=== PATIENT | female | born 1995 | race Caucasian/White ===

== ENCOUNTER 2024-05-08 16:22 | Emergency (ER) | payer OTHER, SELFPAY ==
[2024-05-08 16:25] VITALS: BP 123/75; PULSE 110; RESP 18; TEMP 37.3; O2SAT 99; BMI 24.4
--- NOTE | 2024-05-08 16:33 | ED.PREGNANCY ---
HPI - General Time Seen by Provider: 16:35 Date Seen: 05/08/24 Chief complaint: Vaginal Bleeding Stated complaint: 9.5 weeks , bleeding Time Seen by Provider: 05/08/24 16:28 Source: patient and RN notes reviewed Mode of arrival: ambulatory Limitations: no limitations History of Present Illness HPI Narrative: This 28-year-old female is coming in with bleeding in her 1st trimester. She started having some bleeding earlier today, had a period for about an hour to an hour and half were was heavier, passed some clots. It has settled down. Maybe some light cramping but no significant cramping, no abdominal pain. No fevers or chills. She has her 1st OB appointment scheduled this Monday. She states her last menstrual cycle started on March 02. She had regular menstrual cycles prior to this. This would make her 9 weeks 4 days . Estimated it delivery date December 08. She had some early breast tenderness this but is not ongoing, no morning sickness. Related Data Home Medications ?Medication ?Instructions ?Recorded ?Confirmed cetirizine 10 mg capsule (All Day 10 mg PO DAILY PRN 05/08/24 05/08/24 Allergy (cetirizine)) Allergies Allergy/AdvReac Type Severity Reaction Status Date / Time codeine Allergy Unknown Verified 05/08/24 16:32 Review of Systems Status of ROS: Reports: 6 or more systems reviewed and unremarkable except as noted in History and below PFSH PFS Surgical History [place] teeth extracted ?K08.409 - Partial loss of teeth, unspecified cause, unspecified class (ICD-10) History of tonsillectomy and adenoidectomy ?Z90.89 - Acquired absence of other organs (ICD-10) Family History Mother Breast cancer Diabetes Father Leukemia Grandfather Diabetes Atrial fibrillation FH: prostate cancer Social History Smoking Status: Never smoker How often do you have a drink containing alcohol: never AUDIT-C Alcohol total score: 0 Non-prescribed substance use: denies use service: No Exam Const: Vital Signs, click to edit/add: Vital Signs - 24 hr 05/08/24 16:25 05/08/24 16:41 Temperature 99.2 F Pulse Rate [Right Pulse Oximeter] 110 H Respiratory Rate 18 Blood Pressure [Ri ght Upper Arm] 123/75 Pulse Oximetry 99 98 Oxygen Delivery Me thod Room Air This 28-year-old female is alert, interactive, no apparent distress. She is ambulatory into the ED of her own accord. Sclera clear, face atraumatic, speaking in complete sentences. Lungs are clear, good air entry, no tachypnea accessory muscle use. CV regular rate and rhythm, no murmur. Abdomen is soft, nontender, no rebound or guarding. Pelvic exam deferred at this point. Documenting provider has reviewed patient's vital signs: yes Course Course ED Course: Will obtain ultrasound, CBC, blood type and quantitative hCG in assessment of first-trimester bleeding. This could be threatened miscarriage, miscarriage or even possibly subchorionic hemorrhage. Will await ultrasound report. She states the bleeding has really almost stopped at this point. She is hemodynamically stable. Reevaluation(s) Time of Reevaluation #1: 18:45 Reevaluation #1: Have given patient the unfortunate ultrasound news, provided her a copy of the report. CBC is stable. HCG level is at 4000. We are waiting on her blood type. She understands if her Rh factor is negative, will get RhoGAM. Did review my conversation with the manager online with her. Time of Reevaluation #2: 19:49 Reevaluation #2: Patient is AB-positive. Will discharge to home. Consultations Consultation #1: Have spoken with OB on-call Dr. Cortes. She agrees that this is an incomplete miscarriage. Patient does not bleeding now and thus will not require D&C. She wants patient to call tomorrow to request earlier consultation. She recommends that I give her a bleeding signs and symptoms for return. If she is Rh negative will need RhoGAM. Will need to wait for the blood type. Will go talk to patient about the ultrasound findings and the fact that we need to wait for her blood type. Time: 18:38 Vital Signs Vital signs: Initial Vital Signs Temperature 99.2 F 05/08/24 16:25 Temperature Source Temporal Artery Scan 05/08/24 16:25 Pulse Rate 110 H 05/08/24 16:25 Pulse Rhythm Regular 05/08/24 16:25 Pulse Strength 3+ Normal 05/08/24 16:25 Respiratory Rate 18 05/08/24 16:25 Blood Pressure 123/75 05/08/24 16:25 Blood Pressure Mean 91 05/08/24 16:25 Blood Pressure Position Sitting 05/08/24 16:25 Pulse Oximetry 99 05/08/24 16:25 Oxygen Delivery Method Room Air 05/08/24 16:25 Vital Signs Temperature 99.2 F 05/08/24 16:25 Pulse Rate 110 H 05/08/24 16:25 Respiratory Rate 18 05/08/24 16:25 Blood Pressure 123/75 05/08/24 16:25 Pulse Oximetry 99 05/08/24 16:25 Oxygen Delivery Method Room Air 05/08/24 16:25 Temperature 99.2 F 05/08/24 16:25 Pulse Rate 110 H 05/08/24 16:25 Respiratory Rate 18 05/08/24 16:25 Blood Pressure 123/75 05/08/24 16:25 Pulse Oximetry 98 05/08/24 16:41 Oxygen Delivery Method Room Air 05/08/24 16:25 MDM - OB/Uterine Contractions Lab Data Attestation: I reviewed the patient's lab results. Labs: Lab Results 05/08/24 Range/Units 16:46 WBC 9.07 (4.50-11.00) K/uL RBC 4.85 (4.00-5.20) m/uL Hgb 14.1 (12.0-16.0) gm/dL Hct 43.7 (33.0-51.0) % MCV 90 (80-100) fL MCH 29 (26-34) pg MCHC 32 (32-36) gm/dL RDW Coeff of Brianna 12.3 (11.5-15.5) % Plt Count 347 (140-440) K/uL Neut % (Auto) 71.8 (42.0-72.0) % Lymph % (Auto) 19.1 L (20-44) % [place] % (Auto) 6.9 (0.0-11.0) % Eos % (Auto) 1.3 (0.0-7.0) % Baso % (Auto) 0.3 (0.0-3.0) % Neut # (Auto) 6.51 (1.7-7.0) K/uL Lymph # (Auto) 1.70 (0.90-2.90) K/uL [place] # (Auto) 0.60 (0.00-0.90) K/UL Eos # (Auto) 0.12 (0.00-0.50) K/uL Baso # (Auto) 0.03 (0.00-0.30) K/uL Abs Immat Gran (auto) 0.05 (0.00-0.30) K/uL Imm/Tot Granulo (auto) 0.6 % HCG, Quant 4119.50 mIU/mL Blood Type AB Positive Imaging Data US OB : Attestation: I have reviewed the pertinent imaging results. Radiologist's impression: Patient: JACOB BREEN Facility:?[facility] Patient ID:?[id number] Site Patient ID:?[id number]. Site :?[id number] Study:?US-OB Pelvis 1st tri transvaginal-05/08/2024 5:24:38 PM Ordering Physician:?Sujatha Gusman Final Report: Indication: bleeding in first trimester LMP: 03/02/2024. Technique: Real-time sonographic images of the pelvis were obtained transvaginally using grayscale, color, and Doppler imaging. Comparison: None. Findings: Uterus: Subchorionic hemorrhage measuring 1.5 x 0.4 x 0.5 centimeter. Gestational sac: Mean sac diameter measures 1.6 centimeter, compatible with an average ultrasound age of 6 weeks 3 days. Possible debris is seen within. pole: Not visualized. Yolk sac: Absent. Right ovary: Size: 4.3 x 2.3 x 3.1 centimeter. Appearance: Normal morphology. Corpus luteum measuring 1.7 x 1.7 x 1.7 centimeter and 2.0 x 1.9 x 1.9 centimeter. Left ovary: Size: 2.6 x 1.5 x 1.7 centimeter. Appearance: Normal morphology. No masses. Bladder: Visualized bladder is normal. Other: No free fluid. Impression: 1. The mean sac diameter is 16-24 mm, with no embryo visualized. Findings are suspicious for early failure. Recommend follow-up ultrasound and beta HCG. 2. Subchorionic hemorrhage measuring 1.5 x 0.4 x 0.5 centimeter. Dictated by David Eller MD @ 05/08/2024 5:54:04 PM (Electronic Signature) Discharge Plan Discharge Clinical Impression: Incomplete miscarriage Patient Disposition: Home, Self-Care Condition: Stable Instructions: Miscarriage (ED) Additional Instructions: [facility], see if they can work you in earlier than Monday. If your bleeding is increasing, bleeding through a maxi pad an hour over 2 hours, becoming symptomatic from blood loss as we discussed, do need to be re-evaluated. Type is AB-positive. Activity Level: Activity as Tolerated Prescriptions: No Action All Day Allergy (cetirizine) 10 mg capsule 10 mg PO DAILY PRN Follow Up/Referrals: Provider,Not a Local [Primary Care Provider] - Stand Alone Forms: [employer] Info Instructions
[2024-05-08 16:41] VITALS: O2SAT 98
[2024-05-08 16:51] LABS: Basophils Absolute Auto 0.03 K/uL (0.00-0.30); Basophils Percent Auto 0.3 % (0.0-3.0); Eosinophils Absolute Auto 0.12 K/uL (0.00-0.50); Eosinophils Percent Auto 1.3 % (0.0-7.0); Hematocrit 43.7 % (33.0-51.0); Hemoglobin* 14.1 gm/dL (12.0-16.0); Immature Granulocytes Abs Auto 0.05 K/uL (0.00-0.30); Immature Granulocytes Pct Auto 0.6 %; Lymphocytes Percent Auto 19.1 % (20-44); Mean Corpuscular HGB Conc 32 gm/dL (32-36); Mean Corpuscular Hemoglobin 29 pg (26-34); Mean Corpuscular Volume 90 fL (80-100); Monocytes Percent Auto 6.9 % (0.0-11.0); Neutrophils Absolute Auto 6.51 K/uL (1.7-7.0); Neutrophils Percent Auto 71.8 % (42.0-72.0); Platelet Count* 347 K/uL (140-440); RDW Coefficient of Variation % 12.3 % (11.5-15.5); Red Blood Count 4.85 m/uL (4.00-5.20); White Blood Count* 9.07 K/uL (4.50-11.00)
[2024-05-08 17:13] LABS: Slide Review Reflex No
== END 2024-05-08 19:55 | disposition home or self-care (01) ==
PROVIDERS: Emergency Provider Family Medicine
DX: O03.4 Incomplete spontaneous abortion without complication (principal)
CPT/HCPCS: 36415; 76817; 84702; 85025; 86900; 86901; 94761; 99283; 99284

== ENCOUNTER 2024-05-09 11:37 | Outpatient (CLI) | payer OTHER, SELFPAY | END 2024-05-09 11:38 | disposition home or self-care (01) | PROVIDERS: Visit Provider Obstetrics & Gynecology | DX: O20.0 Threatened abortion (principal) | CPT/HCPCS: 84702 ==

== ENCOUNTER 2024-05-09 19:48 | Emergency (ER) | payer OTHER, SELFPAY ==
[2024-05-09 19:56] VITALS: BP 131/115; PULSE 115; RESP 16; TEMP 36.4; O2SAT 97
--- NOTE | 2024-05-09 19:57 | ED.PREGNANCY ---
HPI - General Time Seen by Provider: 19:57 Date Seen: 05/09/24 Chief complaint: Vaginal Bleeding Stated complaint: miscarriage - Bleeding a lot and alot of clotting Time Seen by Provider: 05/09/24 19:51 Source: patient, family, RN notes reviewed and old records reviewed Mode of arrival: ambulatory Limitations: no limitations History of Present Illness HPI Narrative: This 28-year-old female is coming in with concern of excessive bleeding starting around 530 tonight with known incomplete miscarriage. I did see her last night in the ER, had ultrasound, had lab work. She did go to clinic today, I did review the chart, hCG had dropped further. She notes that she has been soaking in overnight pad, changing it about every 30-45 minutes but the pad is not completely saturated. She does feels like she is constantly bleeding and passing clots. She has had no fevers. She has no chest pain, no shortness of breath, no difficulty breathing. She is feeling more cramping. With the cramping is there it is painful but in between, no significant abdominal pain. Related Data Home Medications ?Medication ?Instructions ?Recorded ?Confirmed cetirizine 10 mg capsule (All Day 10 mg PO DAILY PRN 05/08/24 05/09/24 Allergy (cetirizine)) docosahexaenoic acid 200 mg mg PO 05/09/24 05/09/24 capsule ( DHA) Allergies Allergy/AdvReac Type Severity Reaction Status Date / Time codeine Allergy Unknown Verified 05/09/24 10:29 Review of Systems Narrative: As per HPI. PFSH PFSH Surgical History [place] teeth extracted ?K08.409 - Partial loss of teeth, unspecified cause, unspecified class (ICD-10) History of tonsillectomy and adenoidectomy ?Z90.89 - Acquired absence of other organs (ICD-10) Family History Mother Breast cancer Diabetes Father Leukemia Grandfather Diabetes Atrial fibrillation FH: prostate cancer Social History Smoking Status: Never smoker How often do you have a drink containing alcohol: never AUDIT-C Alcohol total score: 0 Non-prescribed substance use: denies use service: No Exam Const: Vital Signs, click to edit/add: Vital Signs - 24 hr 05/09/24 19:56 Temperature 97.6 F Pulse Rate [Pulse Oximeter] 115 H Respiratory Rate 16 Blood Pressure [Ri ght Upper Arm] 131/115 H Pulse Oximetry 97 Oxygen Delivery Me thod Room Air This 28-year-old female is alert, interactive, no apparent distress. She is ambulating into the ED. She does seem mildly anxious, sclera clear, speech normal. Lungs are clear, good air entry, no wheezing crackles. CV slightly fast but regular, no murmur, normal S1-S2, no S3-S4. She has mild suprapubic tenderness but no rebound or guarding. Do not appreciate organomegaly. Perineum with some smeared old blood but no active bleeding noted. There is nothing on the pad below her at this time. Will continue to monitor. Documenting provider has reviewed patient's vital signs: yes Course Course ED Course: Will have nursing staff place an IV, get blood work. Will monitor for bleeding. Will most likely be talking to OB on-call at some point. We do know that she is AB-positive for her blood type. Will do a type and screen in case of significant bleeding requiring intervention. Reevaluation(s) Time of Reevaluation #1: 21:17 Reevaluation #1: No bleeding on the chux at this time. Awaiting hemoglobin. Nursing staff did not get IV in place, lab did a draw, we did have a critical patient come in that usurped some of these interventions. Patient is hemodynamically stable. Time of Reevaluation #2: 21:50 Reevaluation #2: Patient just has a small smearing and small clot along the labia that strings out when her legs are spread. There is nothing on the pad below her. This is not significant bleeding at this time. Have discussed with her my conversation with Dr. Quarles. She does not want to do the misoprostol, still is considering expectant management. She does know that her bleeding is not life-threatening or excessive to the point of requiring emergent D and C at this time. She will return if bleeding is escalating or worsening, becoming symptomatic. Otherwise, recommend contacting the [facility] to discuss scheduling D and C as recommended by Dr. Quarles. Consultations Consultation #1: Have spoken with Dr. Quarles, she did see this patient earlier. She did dependency counselor her on therapeutic measures with misoprostol all as well as D&C. Patient does not need emergent D and C tonight at this time given that she is in bleeding, hemoglobin has not significantly diminished. She would recommend misoprostol, she has counseled the patient on this, would be 800 mcg vaginally which I am certainly comfortable placing. I will talk to the patient in a while, continue to monitor for bleeding at this point Time: 21:20 Vital Signs Vital signs: Initial Vital Signs Temperature 97.6 F 05/09/24 19:56 Temperature Source Temporal Artery Scan 05/09/24 19:56 Pulse Rate 115 H 05/09/24 19:56 Respiratory Rate 16 05/09/24 19:56 Blood Pressure 131/115 H 05/09/24 19:56 Blood Pressure Mean 120 H 05/09/24 19:56 Blood Pressure Position Sitting 05/09/24 19:56 Pulse Oximetry 97 05/09/24 19:56 Oxygen Delivery Method Room Air 05/09/24 19:56 Vital Signs Temperature 97.6 F 05/09/24 19:56 Pulse Rate 115 H 05/09/24 19:56 Respiratory Rate 16 05/09/24 19:56 Blood Pressure 131/115 H 05/09/24 19:56 Pulse Oximetry 97 05/09/24 19:56 Oxygen Delivery Method Room Air 05/09/24 19:56 Temperature 97.6 F 05/09/24 19:56 Pulse Rate 115 H 05/09/24 19:56 Respiratory Rate 16 05/09/24 19:56 Blood Pressure 131/115 H 05/09/24 19:56 Pulse Oximetry 97 05/09/24 19:56 Oxygen Delivery Method Room Air 05/09/24 19:56 MDM - OB/Uterine Contractions Lab Data Labs: Lab Results 05/09/24 Range/Units 20:40 WBC 14.19 H (4.50-11.00) K/uL RBC 4.39 (4.00-5.20) m/uL Hgb 12.9 (12.0-16.0) gm/dL Hct 39.6 (33.0-51.0) % MCV 90 (80-100) fL MCH 29 (26-34) pg MCHC 33 (32-36) gm/dL RDW Coeff of Brianna 12.4 (11.5-15.5) % Plt Count 319 (140-440) K/uL Neut % (Auto) 81.5 H (42.0-72.0) % Lymph % (Auto) 11.3 L (20-44) % [place] % (Auto) 6.2 (0.0-11.0) % Eos % (Auto) 0.6 (0.0-7.0) % Baso % (Auto) 0.3 (0.0-3.0) % Neut # (Auto) 11.60 H (1.7-7.0) K/uL Lymph # (Auto) 1.60 (0.90-2.90) K/uL [place] # (Auto) 0.90 (0.00-0.90) K/UL Eos # (Auto) 0.10 (0.00-0.50) K/uL Baso # (Auto) 0.00 (0.00-0.30) K/uL Abs Immat Gran (auto) 0.00 (0.00-0.30) K/uL Imm/Tot Granulo (auto) 0.1 % Discharge Plan Discharge Clinical Impression: Incomplete miscarriage Patient Disposition: Home, Self-Care Condition: Stable Instructions: Miscarriage (ED) Additional Instructions: Continue to watch for heavier excessive bleeding as previously reviewed; also need to watch for symptomatic blood loss, if bleeding too much may become short of breath, difficulty breathing, feel heart rate escalating, feel lightheaded or dizzy. Dr. Quarles does recommend that you contact the clinic tomorrow and consider getting scheduled for a D&C. Activity Level: Activity as Tolerated Prescriptions: No Action DHA 200 mg capsule PO All Day Allergy (cetirizine) 10 mg capsule 10 mg PO DAILY PRN Follow Up/Referrals: Provider,Not a Local [Primary Care Provider] - Stand Alone Forms: [employer] Info Instructions
[2024-05-09 20:47] LABS: Basophils Percent Auto 0.3 % (0.0-3.0); Eosinophils Percent Auto 0.6 % (0.0-7.0); Hematocrit 39.6 % (33.0-51.0); Hemoglobin* 12.9 gm/dL (12.0-16.0); Immature Granulocytes Pct Auto 0.1 %; Lymphocytes Percent Auto 11.3 % (20-44); Mean Corpuscular HGB Conc 33 gm/dL (32-36); Mean Corpuscular Hemoglobin 29 pg (26-34); Mean Corpuscular Volume 90 fL (80-100); Monocytes Percent Auto 6.2 % (0.0-11.0); Neutrophils Percent Auto 81.5 % (42.0-72.0); Platelet Count* 319 K/uL (140-440); RDW Coefficient of Variation % 12.4 % (11.5-15.5); Red Blood Count 4.39 m/uL (4.00-5.20); White Blood Count* 14.19 K/uL (4.50-11.00)
[2024-05-09 21:16] LABS: Slide Review Reflex No
== END 2024-05-09 22:16 | disposition home or self-care (01) ==
PROVIDERS: Emergency Provider Family Medicine
DX: O03.4 Incomplete spontaneous abortion without complication (principal)
CPT/HCPCS: 36415; 85025; 86850; 86900; 86901; 99283

== ENCOUNTER 2024-05-27 13:36 | Outpatient (CLI) | payer OTHER, SELFPAY | END 2024-05-27 13:37 | disposition home or self-care (01) | LOC: US 13:36 | PROVIDERS: Visit Provider Obstetrics & Gynecology | DX: O03.4 Incomplete spontaneous abortion without complication (principal) | CPT/HCPCS: 76830; 76856; 84702 ==

== ENCOUNTER 2024-05-27 15:43 | Outpatient (CLI) | payer OTHER, SELFPAY | END 2024-05-27 15:44 | disposition home or self-care (01) | LOC: NFLDREF 15:43 | PROVIDERS: Visit Provider Obstetrics & Gynecology | DX: O03.9 Complete or unspecified spontaneous abortion without complication (principal) | CPT/HCPCS: 84702 ==

== ENCOUNTER 2024-06-03 08:12 | Outpatient (CLI) | payer OTHER, SELFPAY | END 2024-06-03 08:13 | disposition home or self-care (01) | LOC: NFLDREF 06-04 07:53 | PROVIDERS: Visit Provider Obstetrics & Gynecology | DX: O03.9 Complete or unspecified spontaneous abortion without complication (principal) | CPT/HCPCS: 84702 ==

== ENCOUNTER 2025-01-14 07:58 | Outpatient (CLI) | payer OTHER, SELFPAY ==
--- NOTE | 2025-01-14 08:15 | CRLHL7_ITS ---
For Patients: As a result of the Cures Act, medical imaging exams and procedure reports are released immediately into your electronic medical record. You may view this report before your referring provider. If you have questions, please contact your health care provider. OB ULTRASOUND INDICATION: Dating and viability. TECHNIQUE: Real time grayscale imaging of the fetus was performed. Transvaginal. Transvaginal imaging performed to better demonstrate the endometrium and ovaries. LMP: 11/18/2024. NASH by LMP: 08/25/2025. GA: 8 w, 1 d. CRL: 2.0 cm. 8 w 4 d. NASH: 08/22/2025. FHR: 180 BPM. Gestational sac: 2.8 cm. Appears within normal limits. Yolk sac: 3.8 mm. Appears within normal limits. Right ovary: 5.7 x 3.5 x 4.5 cm. CL. Left ovary: 2.7 x 1.6 x 1.5 cm. IMPRESSION: 1. Single living intrauterine measures 8 weeks 4 days with sonographic due date 08/22/2025. 2. Simple circumscribed right ovarian cyst measures 3.5 x 3.2 x 4.0 cm. 3. Mild left adnexal free fluid. Demetrio Tan M.D. Diagnostic Radiologist [email or web address] ALYSSA/jevon escoto/Dictated by: Demetrio Tan MD @ 01/14/2025 10:46:00 AM (Electronically Signed)
== END 2025-01-14 07:59 | disposition home or self-care (01) ==
LOC: US 07:59
PROVIDERS: Visit Provider Physician Assistant
DX: O34.81 Maternal care for other abnormalities of pelvic organs, first trimester (principal); N83.291 Other ovarian cyst, right side; Z3A.08 8 weeks gestation of pregnancy
CPT/HCPCS: 76817; 83021; 86592; 86703; 86704; 86706; 86762; 86787; 86803; 86850; 87086; 87340; 87491; 87591